=== PATIENT | female | born 1950 | race Caucasian/White ===

== ENCOUNTER → 2017-03-12 | Outpatient (CLI) | payer OTHER ==
[~2017-03-12] MED LIST: ASPIR 8181 MG PO; ATIVAN0.5 MG PO; CALCIUM CITRAT1 EA19 PO; CARDURA4 MG PO; EFFIENT10 MG PO; FENTANYL PA50 MCG/HR TRANSDERM; LANTUS100 UNIT/M SUBQ; LOSARTAN-HCTZ1 EAC1 PO; NITROFURANTOIN100 MG PO; NOVOLOG100 UNIT/1 SUBQ; ONDANSETRON HCL4 M2 PO; PROTONIX40 M2 PO; TOPROL XL25 MG PO
--- NOTE | ~2017-03-12 | 2DMMODE ---
[facility] [place] [address] 2 D/M-MODE ECHOCARDIOGRAM Name: KRISH HORVATH Room #: REG [facility]#: [id number] Admission: 03/12/17 Attend Phys: Wilbur Burns MD Discharge: Date of : 48 Date of Service: 03/12/17 1235 Report #: [id number] THIS REPORT FOR: //name// APPROVED REPORT Study performed: 03/12/2017 10:02:30 EXAM: Comprehensive 2D, Doppler, and color-flow Echocardiogram Patient Location: Echo lab Other Information Study Quality: Adequate Indications CAD 2D Dimensions RVDd: 30.77 mm LVEF(%): 68.85 (>50%) IVSd: 10.10 (7-11mm) LVOT Diam: 16.07 (18-24mm) LVDd: 40.64 mm PWd: 11.18 (7-11mm) Ascending Ao: 27.95 (22-36mm) LVDs: 25.14 (25-40mm) Aortic Root: 25.42 mm IVC: 16.00 mm Elaine's LVEF: 68.85 % Volumes Left Atrial Volume (Systole) Single Plane 4CH: 36.59 mL Single Plane 2CH: 39.58 mL LA ESV Index: 40.00 mL/m2 Aortic Valve AoV Peak Teo.: 1.43 m/s AO Peak Gr.: 8.20 mmHg LVOT Max P.70 mmHg LVOT Max V: 1.19 m/s DEISI Vmax: 1.69 cm2 Mitral Valve E/A Ratio: 0.9 MV Decel. Time: 275.76 ms MV E Max Teo.: 1.14 m/s MV A Teo.: 1.34 m/s MV PHT: 79.97 ms IVRT: 79.58 ms [facility] [place] [address] 2 D/M-MODE ECHOCARDIOGRAM Name: KRISH HORVATH Room #: REG [facility]#: [id number] Admission: 03/12/17 Attend Phys: Wilbur Burns MD Discharge: Date of : 48 Date of Service: 03/12/17 1235 Report #: [id number] Pulmonary Valve PV Peak Teo.: 0.90 m/s PV Peak Gr.: 3.21 mmHg Pulmonary Vein P Vein S: 0.76 m/s P Vein A: 0.21 m/s P Vein D: 0.47 m/s P Vein A Dur.: 110.7 msec P Vein S/D Ratio: 1.62 Tricuspid Valve RAP Estimate: 5.00 mmHg Left Ventricle The left ventricle is normal size. Mild concentric left ventricular hypertrophy. The left ventricular systolic function is normal. The left ventricular ejection fraction is within the normal range. LVEF is 65%. Mild diastolic dysfunction is present (impaired relaxation pattern). Right Ventricle The right ventricle is normal size. The right ventricular systolic function is normal. Atria The left atrium size is normal. The right atrium size is normal. Aortic Valve The aortic valve is sclerotic. Trace aortic regurgitation. There is no aortic valvular stenosis. Mitral Valve The mitral valve is normal in structure. There is no mitral valve regurgitation noted. No evidence of mitral valve stenosis. Tricuspid Valve The tricuspid valve is normal in structure. There is no tricuspid valve regurgitation noted. Pulmonic Valve The pulmonary valve is normal in structure. Trace pulmonic regurgitation. Great Vessels The aortic root is normal in size. IVC is normal in size and collapses >50% with inspiration. [facility] [address] [place] [address] 2 D/M-MODE ECHOCARDIOGRAM Name: KRISH HORVATH Room #: REG [facility]#: [id number] Admission: 03/12/17 Attend Phys: Wilbur Burns MD Discharge: Date of : 48 Date of Service: 03/12/17 1235 Report #: [id number] <Conclusion> The left ventricle is normal size. Mild concentric left ventricular hypertrophy. The left ventricular systolic function is normal. The right ventricle is normal size. The left atrium size is normal. The right atrium size is normal. The aortic valve is sclerotic. The mitral valve is normal in structure. <ELECTRONICALLY SIGNED> By: Wilbur Burns MD 03/12/17 1235 1235 1235 Wilbur Burns MD /INF
== END ==
LOC: CV 02-12 14:45
DX: I25.10 Atherosclerotic heart disease of native coronary artery without angina pectoris (principal); I35.1 Nonrheumatic aortic (valve) insufficiency; I37.1 Nonrheumatic pulmonary valve insufficiency

== ENCOUNTER → 2018-06-17 | Outpatient (CLI) | payer OTHER | LOC: NUC 11:17 | DX: I25.10 Atherosclerotic heart disease of native coronary artery without angina pectoris (principal); E78.5 Hyperlipidemia, unspecified; I10 Essential (primary) hypertension; E11.9 Type 2 diabetes mellitus without complications; K21.9 Gastro-esophageal reflux disease without esophagitis ==

== ENCOUNTER → 2019-06-09 | Outpatient (CLI) | payer OTHER ==
--- NOTE | 2019-06-09 11:54 | 2DMMODE ---
[facility] [place] [address] 2 D/M-MODE ECHOCARDIOGRAM Name: KRISH HORVATH Room #: REG [facility]#: [id number] ������������� Admission: 06/09/19 ������������� Attend Phys: Wilbur Burns MD Discharge: ��� ������������� ��� Date of : 48 �������������������� �� Report #: [id number] �������� ��������������������������������������������[id number] THIS REPORT FOR: //name// APPROVED REPORT Study performed: 06/09/2019 11:04:38 EXAM: Comprehensive 2D, Doppler, and color-flow Echocardiogram Patient Location: Out-Patient Status: routine BSA: 1.84 HR: 60 bpm BP: 138/64 mmHg Rhythm: NSR Other Information Study Quality: Good Indications CAD Hx: PCI, DM, HTN. 2D Dimensions RVDd: 34.95 mm IVSd: 12.14 (7-11mm) LVOT Diam: 18.62 (18-24mm) LVDd: 38.88 mm PWd: 11.29 (7-11mm) Ascending Ao: 30.95 (22-36mm) LVDs: 25.64 (25-40mm) Aortic Root: 32.49 mm Volumes Left Atrial Volume (Systole) Single Plane 4CH: 39.48 mL Single Plane 2CH: 60.96 mL LA ESV Index: 30.00 mL/m2 Aortic Valve AoV Peak Teo.: 1.52 m/s AO Peak Gr.: 9.24 mmHg LVOT Max P.83 mmHg LVOT Max V: 1.40 m/s DEISI Vmax: 2.51 cm2 Mitral Valve E/A Ratio: 0.8 MV Decel. Time: 278.74 ms [facility] [address] [place] [address] 2 D/M-MODE ECHOCARDIOGRAM Name: KRISH HORVATH Room #: REG [facility]#: [id number] ������������� Admission: 06/09/19 ������������� Attend Phys: Wilbur Burns MD Discharge: ��� ������������� ��� Date of : 48 �������������������� �� Report #: [id number] �������� ��������������������������������������������[id number] MV E Max Teo.: 1.06 m/s MV A Teo.: 1.34 m/s MV PHT: 80.83 ms IVRT: 83.04 ms Pulmonary Valve PV Peak Teo.: 0.90 m/s PV Peak Gr.: 3.21 mmHg Pulmonary Vein P Vein S: 0.88 m/s P Vein A: 0.36 m/s P Vein D: 0.49 m/s P Vein A Dur.: 120.0 msec P Vein S/D Ratio: 1.80 Tricuspid Valve TR Peak Teo.: 2.70 m/s TR Peak Gr.: 28.00 mmHg Left Ventricle The left ventricle is normal size. There is normal LV segmental wall motion. Mild concentric left ventricular hypertrophy. Left ventricular systolic function is normal. LVEF is 60-65%. Mild diastolic dysfunction is present (impaired relaxation pattern). Right Ventricle The right ventricle is normal size. The right ventricular systolic function is normal. Atria The left atrium size is normal. The right atrium size is normal. Aortic Valve The aortic valve is normal in structure. Trace aortic regurgitation. There is no aortic valvular stenosis. Mitral Valve The mitral valve is normal in structure. Trace mitral regurgitation. No evidence of mitral valve stenosis. Tricuspid Valve The tricuspid valve is normal in structure. Trace to mild tricuspid regurgitation. Estimated PAP is 28mmHg plus the right atrial pressure. Pulmonic Valve [facility] [address] [place] [address] 2 D/M-MODE ECHOCARDIOGRAM Name: YULIETKRISH HANNA Room #: REG [facility]#: [id number] ������������� Admission: 06/09/19 ������������� Attend Phys: Wilbur Burns MD Discharge: ��� ������������� ��� Date of : 48 �������������������� �� Report #: [id number] �������� ��������������������������������������������[id number] The pulmonary valve is normal in structure. Mild pulmonic regurgitation. Great Vessels The aortic root is normal in size. The ascending aorta is normal in size. IVC is not well visualized. Pericardium There is no pericardial effusion. <Conclusion> The left ventricle is normal size. Mild concentric left ventricular hypertrophy. Left ventricular systolic function is normal. Mild diastolic dysfunction is present (impaired relaxation pattern). The right ventricle is normal size. The left atrium size is normal. Trace aortic regurgitation. Trace mitral regurgitation. Trace to mild tricuspid regurgitation. Estimated PAP is 28mmHg plus the right atrial pressure. ��������������������������������������������� <ELECTRONICALLY SIGNED> ���������������������������������������� By: Wilbur Burns MD ��������������������������������������������� 06/09/19 1154 1154 1154 Wilbur Burns MD /INF
== END ==
LOC: CV 10:43
DX: I08.8 Other rheumatic multiple valve diseases (principal); I25.10 Atherosclerotic heart disease of native coronary artery without angina pectoris; I10 Essential (primary) hypertension; E11.9 Type 2 diabetes mellitus without complications; I11.9 Hypertensive heart disease without heart failure; Z88.8 Allergy status to other drugs, medicaments and biological substances; Z88.2 Allergy status to sulfonamides

== ENCOUNTER → 2020-05-17 | Outpatient (CLI) | payer OTHER | LOC: SJCVC 12:44 | PROVIDERS: ATTEND Internal Medicine Cardiovascular Disease | DX: I25.10 Atherosclerotic heart disease of native coronary artery without angina pectoris (principal); R94.31 Abnormal electrocardiogram [ECG] [EKG]; I44.4 Left anterior fascicular block; R00.1 Bradycardia, unspecified; I10 Essential (primary) hypertension; E78.00 Pure hypercholesterolemia, unspecified; Z79.899 Other long term (current) drug therapy ==

== ENCOUNTER → 2020-11-22 | Outpatient (CLI) | payer OTHER | LOC: SJCVCIMAG 07:24 | PROVIDERS: ATTEND Internal Medicine Cardiovascular Disease | DX: I25.10 Atherosclerotic heart disease of native coronary artery without angina pectoris (principal); I49.3 Ventricular premature depolarization; G89.29 Other chronic pain; I10 Essential (primary) hypertension; R60.9 Edema, unspecified; E78.00 Pure hypercholesterolemia, unspecified; E11.9 Type 2 diabetes mellitus without complications; K21.9 Gastro-esophageal reflux disease without esophagitis; E03.9 Hypothyroidism, unspecified; Z98.890 Other specified postprocedural states; Z95.5 Presence of coronary angioplasty implant and graft; Z88.8 Allergy status to other drugs, medicaments and biological substances; Z79.82 Long term (current) use of aspirin; Z79.4 Long term (current) use of insulin; Z79.899 Other long term (current) drug therapy ==

== ENCOUNTER → 2021-05-30 | Outpatient (CLI) | payer OTHER | LOC: SJCVC 10:18 | PROVIDERS: ATTEND Internal Medicine Cardiovascular Disease | DX: R94.31 Abnormal electrocardiogram [ECG] [EKG] (principal); R00.1 Bradycardia, unspecified; I45.2 Bifascicular block; I25.10 Atherosclerotic heart disease of native coronary artery without angina pectoris; I10 Essential (primary) hypertension; E78.00 Pure hypercholesterolemia, unspecified; R60.9 Edema, unspecified; F41.9 Anxiety disorder, unspecified; E78.5 Hyperlipidemia, unspecified; E03.9 Hypothyroidism, unspecified; E11.9 Type 2 diabetes mellitus without complications; K21.9 Gastro-esophageal reflux disease without esophagitis; Z79.82 Long term (current) use of aspirin; Z79.899 Other long term (current) drug therapy; Z79.4 Long term (current) use of insulin; Z88.2 Allergy status to sulfonamides; Z88.8 Allergy status to other drugs, medicaments and biological substances ==

== ENCOUNTER → 2021-07-10 | Outpatient (CLI) | payer OTHER ==
[~2021-07-10] MED LIST changes: +ASA81BEC PO; +HYDROCHLOROTHIA25 M1 PO; +LEVOTHYROXINE50 MCG PO; +LOSARTAN POTAS100 MG PO; +VITAMIN D375 MCG PO; +WELLBUTRIN SR150 MG PO
== END | disposition home or self-care (01) ==
LOC: CAT 13:39
PROVIDERS: ATTEND Internal Medicine
DX: R91.1 Solitary pulmonary nodule (principal)

== ENCOUNTER → 2021-07-12 | Outpatient (CLI) | payer OTHER | LOC: LAB 12:06 | PROVIDERS: ATTEND Student in an Organized Health Care Education/Training Program | DX: Z01.812 Encounter for preprocedural laboratory examination (principal); Z20.822 Contact with and (suspected) exposure to COVID-19 ==

== ENCOUNTER 2021-07-16 06:12 | Inpatient (IN) | payer OTHER ==
[~2021-07-16] VITALS: Ht 154.9 cm; Wt 88.2 kg
[2021-07-16 06:30] VITALS: BP 113/69
[2021-07-16 12:22] VITALS: BP 127/54
--- NOTE | 2021-07-16 14:58 | NUR ---
PT ARRIVED ON UNIT AT APPROXIMATELY 1220. PT WAS SEEN FOR A BRONCHOSCOPY AND HAS A PERFORATION ON THE RIGHT SIDE WILL BE GOING FOR A CHEST TUBE LATER IN THE SHIFT. PT STATES HER PAIN WAS ELEVATED AND WAS GIVING PAIN MEDICATION (SEE MAR) TO CONTROL THE PAIN. ADMISSION INSTRUCTIONS GIVING TO PT AND SPOUSE.
[2021-07-16 15:05] LABS: BF NUCLEATED CELLS 85 /mm3; BF RBC 51702 /mm3
[2021-07-16 15:15] LABS: CLARITY CLOUDY; COLOR RED; SOURCE RML BAL
[2021-07-16 15:55] VITALS: BP 138/67
[2021-07-16 16:40] VITALS: BP 130/49
[2021-07-16 17:00] VITALS: BP 128/52
--- NOTE | 2021-07-16 18:07 | NUR ---
RECEIVED PT AFTER A BRONCHOSCOPY WITH POSSIBLY NEEDING A CHEST TUBE. PT WENT DOWN THIS AFTERNOON AND HAD A CHEST TUBE PLACED ON THE RIGHT SIDE. PT STATED SHE WAS STILL IN PAIN AFTER RECEIVEING MORPHIENE, FENTANYL, AND VERSED. DR. PORTILLO WAS CONTACTED ORDER WAS CHANGED FROM MORPHIENE TO DILAUDED.
[2021-07-16 19:13] LABS: BF MACROPHAGE 3 %; BF NEUTROPHILS 79 %
[2021-07-16 20:00] VITALS: BP 103/42
[2021-07-16 20:42] LABS: TOTAL VOLUME 15 mL
--- NOTE | 2021-07-16 23:41 | NUR ---
ASSESSED AT START OF SHIFT. PT RESTING IN BED. CHEST TUBE INTACT IN RUQ TO SUCTION. DILAUDID GIVEN FOR PAIN. BSG CHECKED 186. PT REFUSED NIGHT TIME INSULIN. NO APPITITE. FALL PREC IN PLACE AND CALL LIGHT AT REACH WILL CONT TO MONITOR.
[2021-07-17 00:13] VITALS: BP 114/47
[2021-07-17 04:43] VITALS: BP 131/53
[2021-07-17 07:38] VITALS: BP 113/47
[2021-07-17 11:22] VITALS: BP 120/48
[2021-07-17 15:29] VITALS: BP 120/50
--- NOTE | 2021-07-17 17:07 | PATH ---
[facility] [address] [place] [address] PATHOLOGY RPT PROCEDURE Name: ROBYN TRINH Room #: 209-P ADM IN M.R.#: [id number] Admission: 07/16/21 Date of : 48 Discharge: Report #: [id number] Path Case #: [id number] [facility] Accession Number: [id number] . 01 Material submitted: . lung - RML TISSUE BIOPSY. Modifiers: RML . 01 Clinical history: . LUNG NODULES RESP/BRONCH BRUSH PUL/ BRONCHOSCOPY/ PUL/ BRONCHOSCOPY/ MULTI NOD... . 02 Diagnosis: Lung, right middle lobe, forceps biopsy: - Benign bronchial tissue along with alveolated lung parenchyma showing mild emphysematous changes. - No definite dysplasia or malignancy identified. (IUV:pit; 07/17/2021) QTP 07/17/2021 1609 Local . 02 Electronically signed: . Kennedi Argueta MD, Pathologist NPI- [id number] . 01 Gross description: . The specimen is received in formalin, labeled "Robyn Trinh, [facility] forceps". The source is additionally listed on the requisition as "[facility] tissue biopsy". Received are multiple fragments of pale mena to red-brown, needle core tissue measuring 1.2 x 0.7 x 0.1 cm in aggregate dimensions. The specimen is filtered and entirely submitted in cassette A1. ([facility]; 07/16/2021) NRI/NRI 07/16/2021 1924 Local . 02 Pathologist provided ICD-10: R91.8 . 02 CPT . 109268 Specimen Comment: A courtesy copy of this report has been sent to [phone] Specimen Comment: [phone] Specimen Comment: Report sent to / DR AGUIRRE Performed at: [address] [id number] MD Felipe Alfaro MD Phone: [phone] Performed at: [address] [address] [place] [address] PATHOLOGY RPT PROCEDURE Name: ROBYN TRINH HANNA Room #: 209-P ADM IN M.R.#: [id number] Admission: 07/16/21 Date of : 48 Discharge: Report #: [id number] Path Case #: [id number] [facility] [address] [address] [place], [place] [id number] MD Kennedi Argueta MD Phone: [phone]
--- NOTE | 2021-07-17 17:32 | NUR ---
PT REMAINED IN BED THROUGHOUT THE SHIFT. PT HAD COMPLAINTS OF PAIN THAT WAS RELIEVED WITH MEDICATIONS (SEE MAR). NO BOWEL MOVEMENT. PT HAD A FEW BITES OF HER LUNCH THEN STATED SHE HASN'T BEEN HUNGRY. PT SPOUSE REMAINED AT BEDSIDE.
[2021-07-17 20:13] VITALS: BP 119/54
--- NOTE | 2021-07-18 03:54 | NUR ---
UPON SHIFT REPORT, PT SLEEPING. PT RESTING IN BED WITHOUT INTERRUPTION OR OBSERVATION OF PAIN, DISCOMFORT OR SOB WHILE ON 2L O2 VIA NC. PT RESTING IN BED THROUGHOUT REMAINDER OF SHIFT, FREQUENT REPOSITIONIING ENCOURAGED, PT REFUSING REPOSITIONING ASSISTANCE DUE TO COMFORT PREFERENCES. PT ENCOURAGED TO NOTIFY STAFF FOR ALL NEEDS, CALL LIGHT WITHIN REACH, BED ALARM ON, BED LOCKED IN LOWEST POSITION, FREQUENT MONITORING WILL CONTINUE.
[2021-07-18 04:26] VITALS: BP 148/52
[2021-07-18 07:36] VITALS: BP 133/46
[2021-07-18 10:37] VITALS: BP 135/59
--- NOTE | 2021-07-18 10:38 | NUR ---
PT OFF UNIT TO BALANCE STAFF INSPECTOR LEFT AT APPROXIMATELY 10AM.
[2021-07-18 11:48] VITALS: BP 124/52
--- NOTE | 2021-07-18 12:08 | NUR ---
met with patient who admits with pnemothorax. Patient resides at home with spouse. She reports independent with adls and self care. She has steps in home but does not use unless her dtr in law staying with them. Patient currently on oxygen but not using at home. Discussed home health care but patient does not feel she needs home health at [place]. She reports her spouse is home to help. She just wants tube to be discontinued. cont to follow
--- NOTE | 2021-07-18 12:30 | NUR ---
SPOKE WITH DR. ADAMES HE ASKED TO HAVE TUBE TO BE PLACED TO WATER SEAL AND THEN HAVE A CHEST XRAY PERFORMED 4 HOURS LATER.
[2021-07-18 16:00] VITALS: BP 138/67
--- NOTE | 2021-07-18 18:09 | NUR ---
PT HAD GOOD URINE OUTPUT, NO BOWEL MOVEMENT. CHEST TUBE WAS CHANGED FROM SUCTION TO WATERSEAL. PT HAD A CHEST XRAY AND IS SCHEDULED TO HAVE ANOTHER ONE TOMORROW. DISCUSSED WITH PT BENEFITS OF NON PHARMACOLOGICAL PAIN CONTROL AND SHE STATED SHE WOULD ATTEMPT TO TRY STRATEGIES TO REDUCE THE AMOUNT OF PAIN CONTROL NEEDED. PT IS OFF O2 AND IS INSTRUCTED TO USE THE INCINTIVE SPIROMITOR MORE TO IMPROVE O2 SAT. PT IS CURRENTLY ON ROOM AIR. SPOUSE AT BEDSIDE MOST OF THE DAY.
[2021-07-18 20:06] VITALS: BP 124/52
[2021-07-19 03:10] VITALS: BP 150/68
--- NOTE | 2021-07-19 04:00 | NUR ---
PT EDUCATED ABOUT PAIN MGT. SHE ASKED FOR DIULADID X 1. REPORTS NORCO MAKES HER STOMACH FEEL BAD.I SUGGESTED CALLING FOR OTHER ORAL PAIN OPTIONS BUT SHE IS NOT INTERESTED.CHEST TUBE WITH 5CC OUT.UP WITH SBA TO BSC.
[2021-07-19 07:00] VITALS: BP 138/60
[2021-07-19 11:30] VITALS: BP 136/63
--- NOTE | 2021-07-19 14:16 | NUR ---
PT eval deferred as pt getting cxr. Chest tube to be dc'd. Possible dc home later today or tomorrow. SBA for tx to BSC. Pt denies any dc needs. Off o2. No cm interventions indicated at this time.
[2021-07-19 17:00] VITALS: BP 134/90
--- NOTE | 2021-07-19 18:10 | NUR ---
Patient is A/OX4, able to make needs known. vss afebrile, HR is SR to SBRADY on the monitor. Dr Maldonado removed chest tube without difficulty. Abulates with SBA. poor appetite noted. c/o pain and nausea which is controlled with medication.
[2021-07-19 19:59] VITALS: BP 132/60
[2021-07-19 21:49] VITALS: BP 132/60
[2021-07-20 03:19] VITALS: BP 187/68
[2021-07-20 05:32] VITALS: BP 143/53
[2021-07-20 07:16] LABS: HEMATOCRIT 35.7 % (37.0-47.0); HEMOGLOBIN 11.7 gm/dL (12.0-15.0); MCH 30.4 pg (26.0-34.0); MCHC 32.7 g/dL (28.0-37.0); MCV 92.7 fL (80.0-100.0); RBC 3.85 mil/uL (4.20-5.00); RDW 14.5 % (10.5-14.5); WBC 8.2 thou/uL (4.0-11.0)
[2021-07-20 07:22] LABS: CALCIUM 9.3 mg/dL (8.5-10.1); CREATININE 1.2 mg/dL (0.6-1.0); POTASSIUM 4.1 mmol/L (3.5-5.1)
[2021-07-20 07:27] VITALS: BP 127/55
[2021-07-20 10:44] VITALS: BP 127/55
--- NOTE | 2021-07-20 11:36 | NUR ---
DISCHARGED PT TO HOME WITH SPOUSE. EXPLAINED DISCHARGE INSTRUCTIONS TO PT AND SPOUSE. HIGH LIGHTED MEDS THAT ARE TO BE DISCONTINUED. PT AND SPOUSE STATED THEY UNDERSTOOD AND ALL QUESTIONS ANSWERED. PT TAKING OUT TO VEHICLE VIA WHEEL CHAIR.
--- NOTE | 2021-07-26 19:59 | NUR ---
*07/19/21 LATE ENTRY ASSUMED PT CARE ON 07/19/21 APPROX 1900. UPON SHIFT REPORT, PT REPORTED 7/10 RIB PAIN. PT HAS PRN PO NORCO Q4HR AVAILABLE, REFUSING ADMINISTRATION. UPON PT ASSESSMENT APPROX 2149, PT AOX4. PT REPORTS 3/10 RIGHT RIB PAIN. PT CONTINUED TO REFUSE PRN PAIN MEDICATION. PT DENIED SOB WHILE ON ROOM AIR. PT TOLERATED PO INTAKE OF REGULAR DIET WITHOUT ISSUE, PT WITH HICCUPS. PT REPORTED INTERMITTED NAUSEA WITHOUT EMESIS. PT AMBULATED IN ROOM AND TO BATHROOM INDEPENDENTLY. SENSATION INTACT, PERIPHERAL PULSES PALPABLE, CAPILLARY REFILL LESS THAN 3SEC IN ALL EXTREMITIES. PT ENCOURAGED TO NOTIFY STAFF FOR ALL NEEDS, CALL LIGHT WITHIN REACH, BED LOCKED IN LOWEST POSITION, FREQUENT MONITORING WILL CONTINUE.
--- NOTE | 2021-08-02 09:08 | PATH ---
[facility] [address] [place] [address] PATHOLOGY RPT PROCEDURE Name: KRISH HORVATH Room #: 209-P DIS IN M.R.#: [id number] Admission: 07/16/21 Date of : 48 Discharge: 07/20/21 Report #: [id number] Path Case #: [id number] Note [facility] Accession Number: [id number] TESTS RESULT FLAG UNITS REF RANGE LAB Source: RML BRUSHING DIAGNOSIS: RML BRUSHING NEGATIVE FOR MALIGNANT EPITHELIAL CELLS. NORMAL BRONCHIAL CELLS ARE PRESENT. Pathologist ICD10: 02 R91.8 Signed out by: Kennedi Argueta MD, Pathologist NPI- [id number] Performed by: Carmen Conner, Correctional Corporal ([facility]) Gross description: 01 20ML, CLEAR, COLORLESSS /LCS 07/17/2021 1800 Local FLAG LEGEND: L-Low Normal,H-High Normal,LL-Alert Low,HH-Alert High <-Panic Low,>-Panic High,A-Abnormal,AA-Critical Abnormal Performed at: [address] [place] [address] Felipe Alfaro MD, [address] [address] Kennedi Argueta MD, Specimen Comment: A duplicate report has been generated due to demographic updates. Performed at: [address], [place], [place] [id number] MD Felipe Alfaro MD Phone: [phone]
== END 2021-07-20 11:39 | disposition home or self-care (01) | DRG 166 ==
LOC: PUL 06:12 → TBA 06:12 → OR 09:20 → PUL 12:43 → 2N 12:43 → EDSTATUS 13:23 → PUL 13:24 → 2N 07-20 11:39
PROVIDERS: Nurse Practitioner Family; ADMIT Pediatrics; ATTEND Pediatrics
DX: J93.83 Other pneumothorax (principal); J96.20 Acute and chronic respiratory failure, unspecified whether with hypoxia or hypercapnia; R91.8 Other nonspecific abnormal finding of lung field; I25.10 Atherosclerotic heart disease of native coronary artery without angina pectoris; I10 Essential (primary) hypertension; E78.5 Hyperlipidemia, unspecified; E11.9 Type 2 diabetes mellitus without complications; K21.9 Gastro-esophageal reflux disease without esophagitis; E03.9 Hypothyroidism, unspecified; F32.9 Major depressive disorder, single episode, unspecified; J38.01 Paralysis of vocal cords and larynx, unilateral; Z88.2 Allergy status to sulfonamides; Z88.8 Allergy status to other drugs, medicaments and biological substances; Z90.49 Acquired absence of other specified parts of digestive tract; Z95.5 Presence of coronary angioplasty implant and graft; Z79.899 Other long term (current) drug therapy
CPT/HCPCS: 10797; 62110; 62900; 70005

== ENCOUNTER → 2021-11-15 | Outpatient (CLI) | payer OTHER | LOC: CAT 11:04 | PROVIDERS: ATTEND Internal Medicine | DX: R91.1 Solitary pulmonary nodule (principal); R91.8 Other nonspecific abnormal finding of lung field; Z88.8 Allergy status to other drugs, medicaments and biological substances; Z88.1 Allergy status to other antibiotic agents ==